=== PATIENT | male | born 2000 | race Two or more races ===

== ENCOUNTER → 2024-12-08 | Outpatient (CLI) | payer OTHER, SELFPAY ==
--- NOTE | 2024-12-08 14:38 | XR_ITS ---
Examination: Knee bilateral, 6 views Technique: Knee AP, lateral, oblique each knee total 6 views Date and time of exam: December 08, 2024 1450 hours INDICATIONS: Injury to both the chest today, bilateral knee pain FINDINGS: No fracture or dislocation involving either knee No patellar dislocation IMPRESSION: No fracture or dislocation involving either knee
== END | disposition home or self-care (01) ==
PROVIDERS: Referring Provider Nurse Practitioner Family; Visit Provider Nurse Practitioner Family
DX: S80.01XA Contusion of right knee, initial encounter (principal); S80.02XA Contusion of left knee, initial encounter; X58.XXXA Exposure to other specified factors, initial encounter
CPT/HCPCS: 73562